=== PATIENT | male | born 1995 | race American Indian/Alaskan Native ===

== ENCOUNTER 2020-06-01 11:02 | Emergency (ER) | payer MEDICARE ==
--- NOTE | 2020-06-01 13:38 | Event Note ---
ED Screening Note Date of service: 06/01/20 Time: 13:37 ED Screening Note: This is a 24-year-old male with a history of depression, paraplegia who presents the ED with mother complaining of no eating for the past 4 days and nonverbal. Patient is not verbal at all. When asked questions he is not speaking. Mom states he can talk. Mom states that 911 and ambulance were sent to the home yesterday but patient refused to talk and no treatment was given. This initial assessment/diagnostic orders/clinical plan/treatment(s) is/are subject to change based on patients health status, clinical progression and re- assessment by fellow clinical providers in the ED. Further treatment and workup at subsequent clinical providers discretion. Patient/guardian urged not to elope from the ED as their condition may be serious if not clinically assessed and managed. Initial orders include: Labs are ordered. Urinalysis ordered, cxr Case management consult placed for home placement IV fluids,
--- NOTE | 2020-06-01 14:20 | XRay Report ---
CHEST 1 VIEW INDICATION / CLINICAL INFORMATION: pain. COMPARISON: None available. FINDINGS: SUPPORT DEVICES: None. HEART / MEDIASTINUM: No significant abnormality. LUNGS / PLEURA: No significant pulmonary or pleural abnormality.. No pneumothorax. ADDITIONAL FINDINGS: No significant additional findings. IMPRESSION: 1. No acute findings. Signer Name: Santy Pitts MD Signed: 06/01/2020 2:16 PM Workstation Name: [id number]
[2020-06-01] MEDS ORDERED: SODIUM CHLORIDE 0.9% 1000 ML 1,000 ML IV ONE ×2 (14:42→19:00)
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
[2020-06-01] MEDS ORDERED: ONDANSETRON 4 MG/2 ML INJ IV ONE (14:48)
[2020-06-01 15:15] LABS: Bilirubin,Urine NEG (Negative); Blood,Urine NEG (Negative); Color,Urine Amber (Yellow); Mucus,Urine 3+ /HPF
[2020-06-01 15:20] LABS: Amphetamine Screen,Urine Negative; Benzodiazepines Screen,Urine Negative; Cocaine Screen,Urine Negative; Methadone Screen,Urine Negative; Opiate Screen,Urine Negative
[2020-06-01 15:39] LABS: Cannabinoid Screen,Urine Positive
[2020-06-01 17:08] LABS: Basophils % (Auto) 0.4 % (0.0-1.8); Eosinophils % (Auto) 0.2 % (0.0-4.3); Hematocrit 47.7 % (35.5-45.6); Hemoglobin 15.5 gm/dl (11.8-15.2); Lymphocytes # (Auto) 1.4 K/mm3 (1.2-5.4); Lymphocytes % (Auto) 19.3 % (13.4-35.0); Mean Corpuscular HGB Conc 32 % (32-34); Mean Corpuscular Volume 88 fl (84-94); Monocytes # (Auto) 0.5 K/mm3 (0.0-0.8); Monocytes % (Auto) 7.1 % (0.0-7.3); Platelet Count 221 K/mm3 (140-440); Red Blood Count 5.41 M/mm3 (3.65-5.03); Red Cell Distribution Width 12.5 % (13.2-15.2)
[2020-06-01 17:27] LABS: Alanine Aminotransferase 16 units/L (7-56); Albumin 4.7 g/dL (3.9-5); Blood Urea Nitrogen 8 mg/dL (9-20); Hemolysis Index 7
[2020-06-01 17:36] LABS: BUN/Creatinine Ratio 11
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
[2020-06-02] MEDS: ARIPiprazole 5 MG TAB PO SCH (12:39)
[2020-06-02] MEDS ORDERED: SODIUM CHLORIDE 0.9% 500 ML 500 ML IV ONE (14:41)
--- NOTE | 2020-06-02 15:47 | XRay Report ---
CHEST 1 VIEW 06/02/2020 2:41 PM INDICATION / CLINICAL INFORMATION: poss sepsis. History of TBI. Not eating or drinking. COMPARISON: 06/01/20 FINDINGS: SUPPORT DEVICES: None. HEART / MEDIASTINUM: No significant abnormality. LUNGS / PLEURA: No significant pulmonary or pleural abnormality. No pneumothorax. ADDITIONAL FINDINGS: No significant additional findings. IMPRESSION: 1. No acute findings. No change. Signer Name: Kennedy Betancourt MD Signed: 06/02/2020 3:43 PM Workstation Name: [id number]
[2020-06-02 15:54] LABS: Blood Urea Nitrogen 4 mg/dL (9-20); Calcium 9.7 mg/dL (8.4-10.2); Hemolysis Index 12
[2020-06-02 15:58] LABS: BUN/Creatinine Ratio 7
[2020-06-02 16:00] LABS: Albumin 4.4 g/dL (3.9-5); Bilirubin,Direct 0.5 mg/dL (0-0.2)
[2020-06-02 16:09] LABS: Basophils % (Auto) 0.4 % (0.0-1.8); Eosinophils % (Auto) 0.7 % (0.0-4.3); Hematocrit 42.6 % (35.5-45.6); Hemoglobin 13.6 gm/dl (11.8-15.2); Lymphocytes # (Auto) 1.5 K/mm3 (1.2-5.4); Lymphocytes % (Auto) 31.4 % (13.4-35.0); Mean Corpuscular HGB Conc 32 % (32-34); Mean Corpuscular Volume 89 fl (84-94); Monocytes # (Auto) 0.5 K/mm3 (0.0-0.8); Monocytes % (Auto) 10.3 % (0.0-7.3); Platelet Count 190 K/mm3 (140-440); Red Blood Count 4.77 M/mm3 (3.65-5.03); Red Cell Distribution Width 12.7 % (13.2-15.2)
[2020-06-03] MEDS ORDERED: SODIUM CHLORIDE 0.9% 500 ML 500 ML IV ONE (09:11)
[2020-06-03] MEDS: ARIPiprazole 5 MG TAB PO SCH (09:37)
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
[2020-06-03 15:54] VITALS: BP 110/70
== END 2020-06-03 17:47 | disposition home or self-care (01) ==
LOC: ED 11:02 → EEVIPCON 11:02 → ED 06-03 17:47
DX: E86.0 Dehydration (principal); F32.9 Major depressive disorder, single episode, unspecified; G82.20 Paraplegia, unspecified; R41.82 Altered mental status, unspecified; Z98.890 Other specified postprocedural states; Z79.899 Other long term (current) drug therapy
CPT/HCPCS: 36415; 71045; 80048; 80053; 80076; 80307; 81001; 82140; 82550; 82962; 84484; 85025; 87040; 93005; 96361; 96374; 99285; J2405; J7030; J7040; 80320; G0480

== ENCOUNTER 2020-06-08 09:09 | Inpatient (IN) | payer MEDICARE ==
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
[2020-06-08] MEDS ORDERED: DEXTROSE 50% IN WATER (25GM) 50 ML SYRINGE IV ONE (10:25)
[2020-06-08] MEDS ORDERED: DEXTROSE 50% IN WATER (25GM) 50 ML VIAL IV PRN (10:27)
[2020-06-08 11:36] LABS: Hematocrit 44.8 % (35.5-45.6); Hemoglobin 14.6 gm/dl (11.8-15.2)
--- NOTE | 2020-06-08 11:44 | XRay Report ---
CHEST 1 VIEW INDICATION: hypoglycemia. COMPARISON: 06/02/2020 FINDINGS: Support devices: None. Heart: Within normal limits. Lungs/Pleura: No acute air space or interstitial disease. Additional findings: None. IMPRESSION: No acute abnormality. Signer Name: Eduar Cardenas MD Signed: 06/08/2020 11:40 AM Workstation Name: [id number]
[2020-06-08 11:59] LABS: Alanine Aminotransferase 10 units/L (7-56); Albumin 4.7 g/dL (3.9-5); BUN/Creatinine Ratio 6; Blood Urea Nitrogen 5 mg/dL (9-20); Calcium 10.3 mg/dL (8.4-10.2); Hemolysis Index 6
[2020-06-08] MEDS ORDERED: D5W/0.45% NACL 1,000 ML IV SCH (13:00)
--- NOTE | 2020-06-08 17:53 | History and Physical Report ---
History of Present Illness Date of examination: 06/08/20 Date of admission: 06/08/20 12:32 Chief complaint: Poor appetite History of present illness: 24-year-old male with a medical history of traumatic brain injury now with bilateral leg weakness admitted with a chief complaint of poor appetite. As per patient's mother, patient has been having poor appetite for quite some time now. He refuses to eat anything. Previously, patient was functional and was able to take care of himself but lately this is not the case. He was recently seen in the ER and was discharged from the ER At this time, patients labs showed metabolic acidosis and patient was admitted for further evaluation. Patient also has hypoglycemia. Past History Past Medical History: other (TBI) Medications and Allergies Allergies Allergy/AdvReac Type Severity Reaction Status Date / Time No Known Allergies Allergy Unverified 05/03/15 18:09 Home Medications Medication Instructions Recorded Confirmed Last Taken Type Escitalopram [Lexapro] 10 mg PO DAILY 05/03/15 05/04/15 05/04/15 History Zolpidem Tartrate [Ambien] 10 mg PO QHS 05/03/15 05/04/15 05/04/15 History oxyCODONE /ACETAMINOPHEN [Percocet 1 tab PO Q8HR PRN 05/03/15 05/04/15 05/04/15 History 5/325 mg] traZODone [Desyrel] 150 mg PO QHS 05/03/15 05/04/15 05/04/15 History Baclofen 20 mg PO Q6HR #1 mo 05/09/15 05/04/15 05/04/15 Rx Active Meds: Active Medications Dextrose (D50w (25gm) Vial) 50 gm IV Q30MIN PRN; Protocol PRN Reason: Hypoglycemia Dextrose/Lactated Ringer's (D5lr) 1,000 mls @ 100 mls/hr IV DIRECT YASMIN Review of Systems ROS unobtainable: due to mental status (Patient is nonverbal) Exam - Constitutional Vitals: Temp Pulse Resp BP Pulse Ox 97.8 F 100 H 20 114/72 98 06/08/20 11:46 06/08/20 11:46 06/08/20 11:46 06/08/20 11:46 06/08/20 11:46 General appearance: Present: no acute distress, well-nourished - EENT Eyes: Present: PERRL ENT: hearing intact, clear oral mucosa - Neck Neck: Present: supple, normal ROM - Respiratory Respiratory effort: normal Respiratory: bilateral: CTA - Cardiovascular Heart Sounds: Present: S1 & S2. Absent: rub, click - Extremities Extremities: No edema, abnormal (Has contractures of the upper extremity) Peripheral Pulses: within normal limits - Abdominal General gastrointestinal: Present: soft, non-tender, non-distended, normal bowel sounds Male genitourinary: Present: normal - Integumentary Integumentary: Present: clear, warm, dry - Musculoskeletal Musculoskeletal: gait normal, strength equal bilaterally - Psychiatric Psychiatric: appropriate mood/affect, intact judgment & insight - Neurologic Neurologic: CNII-XII intact, moves all extremities Results - Labs CBC & Chem 7: 06/08/20 11:03 06/08/20 11:03 Labs: Laboratory Last Values Hgb 14.6 gm/dl (11.8-15.2) 06/08/20 11:03 Hct 44.8 % (35.5-45.6) 06/08/20 11:03 Plt Count 238 K/mm3 (140-440) 06/08/20 11:03 Sodium 145 mmol/L (137-145) 06/08/20 11:03 Potassium 3.7 mmol/L (3.6-5.0) 06/08/20 11:03 Chloride 102.1 mmol/L (98-107) 06/08/20 11:03 Carbon Dioxide 17 mmol/L (22-30) L 06/08/20 11:03 Anion Gap 30 mmol/L 06/08/20 11:03 BUN 5 mg/dL (9-20) L 06/08/20 11:03 Creatinine 0.8 mg/dL (0.8-1.3) 06/08/20 11:03 Estimated GFR > 60 ml/min 06/08/20 11:03 BUN/Creatinine Ratio 6 % 06/08/20 11:03 Glucose 78 mg/dL (75-100) 06/08/20 11:03 POC Glucose 93 (70-105) 06/08/20 17:12 Calcium 10.3 mg/dL (8.4-10.2) H 06/08/20 11:03 Magnesium 1.80 mg/dL (1.7-2.3) 06/08/20 11:03 Total Bilirubin 1.90 mg/dL (0.1-1.2) H 06/08/20 11:03 AST 13 units/L (5-40) 06/08/20 11:03 ALT 10 units/L (7-56) 06/08/20 11:03 Alkaline Phosphatase 58 units/L (35-129) 06/08/20 11:03 Total Creatine Kinase 81 units/L (55-170) 06/08/20 11:03 Total Protein 8.6 g/dL (6.3-8.2) H 06/08/20 11:03 Albumin 4.7 g/dL (3.9-5) 06/08/20 11:03 Albumin/Globulin Ratio 1.2 % 06/08/20 11:03 Salicylates < 0.3 mg/dL (2.8-20.0) L 06/08/20 11:03 Acetaminophen 5.0 ug/mL (10.0-30.0) L 06/08/20 11:03 Plasma/Serum Alcohol < 0.01 % (0-0.07) 06/08/20 11:03 Assessment and Plan Assessment and plan: 24-year-old male with a medical history of traumatic brain injury admitted with a chief complaint of poor appetite. In the ER, patient noted to have hypoglycemia, metabolic acidosis and patient was admitted to the hospital. - Patient Problems (1) Starvation ketoacidosis Current Visit: Yes Status: Acute Plan to address problem: Patient has very poor appetite and has not been able to eat and this is resulting in metabolic acidosis Patient's mother is open to patient getting a PEG tube should no etiology found for current issues Check TSH, vitamin B12, folic acid, vitamin D. Check chest x-ray and urinalysis-results negative (2) Hypoglycemia Current Visit: Yes Status: Acute Plan to address problem: Start on D5 Ringer's lactate Accu-Cheks every 6 hours for now Megestrol (3) Depression Current Visit: Yes Status: Acute Qualifiers: Depression Type: other depression Qualified Code(s): F32.89 - Other specified depressive episodes Plan to address problem: Psychiatry evaluation for depression (4) Paraplegia Current Visit: Yes Status: Acute Plan to address problem: Continue daily monitoring Baclofen for contractures/spasms (5) DVT prophylaxis Current Visit: No Status: Acute Plan to address problem: Heparin
[2020-06-08] MEDS ORDERED: ONDANSETRON 4 MG/2 ML INJ IV PRN (18:33)
[2020-06-08] MEDS ORDERED: D5W/LACTATED RINGERS 1,000 ML IV SCH (19:00)
[2020-06-08] MEDS: BACLOFEN 10 MG TAB PO SCH (20:31)
[2020-06-09 06:17] LABS: Amphetamine Screen,Urine Negative; Benzodiazepines Screen,Urine Negative; Cocaine Screen,Urine Negative; Methadone Screen,Urine Negative; Opiate Screen,Urine Negative
[2020-06-09 06:56] LABS: Cannabinoid Screen,Urine Negative
--- NOTE | 2020-06-09 10:35 | Consultation ---
History of Present Illness - Reason for Consult Consult date: 06/09/20 Reason for consult: MHE Requesting physician: KIRBY DESAI - Chief Complaint Chief complaint: Poor appetite - History of Present Psychiatric Illness Psych HPI Patient is a 24 year old Male with Medical hx of TBi previously signed off psych services returned to facility for medical and psych evaluation. Patient seen in room, alert, nor verbal;, raised his right hand to the mouth, asked if he was hungry or thirsty patient nodded yes. Patient not able to respond to questions. MEDICATIONS: Assessment and Plan - Psychiatric problem (1) Hx of traumatic brain injury Current Visit: Yes Status: Acute No acute psychiatric benefit seen for inpt admission. Medical and Neuro management maybe warranted if they deem necessary, if not, penitentiary placement recommended at this time, due to level of care. Mom reports patient had been in penitentiary prior with good recovery. Risks, benefits and alternatives of medications discussed with the patient, questions answered and consent obtained from patient. PSYCHOTHERAPY: Supportive psychotherapy provided MEDICAL: Per primary team DELIRIUM PRECAUTIONS: Please re-orient patient frequently, keep lights on during the day, and minimize benzodiazepines and opiates as these medications could worsen patient's confusion. NEWSPAPER PUBLISHER: per medical team DISPOSITION: Per primary team; no indication for acute inpatient psychiatric hospitalization at this time LEGAL STATUS: Voluntary FOLLOW-UP: Will sign off Thank you for the consult. Please contact with any questions and/or concerns. Medications and Allergies Allergies Allergy/AdvReac Type Severity Reaction Status Date / Time No Known Allergies Allergy Unverified 05/03/15 18:09 Home Medications Medication Instructions Recorded Confirmed Last Taken Type Escitalopram [Lexapro] 10 mg PO DAILY 05/03/15 05/04/15 05/04/15 History Zolpidem Tartrate [Ambien] 10 mg PO QHS 05/03/15 05/04/15 05/04/15 History oxyCODONE /ACETAMINOPHEN [Percocet 1 tab PO Q8HR PRN 05/03/15 05/04/15 05/04/15 History 5/325 mg] traZODone [Desyrel] 150 mg PO QHS 05/03/15 05/04/15 05/04/15 History Baclofen 20 mg PO Q6HR #1 mo 05/09/15 05/04/15 05/04/15 Rx Active Meds: Active Medications Baclofen (Lioresal) 10 mg PO TID YASMIN Last Admin: 06/08/20 20:31 Dose: Not Given Documented by: Dextrose (D50w (25gm) Vial) 50 gm IV Q30MIN PRN; Protocol PRN Reason: Hypoglycemia Escitalopram Oxalate (Lexapro) 15 mg PO QDAY YASMIN Folic Acid (Folvite) 1 mg PO QDAY YASMIN Dextrose/Lactated Ringer's (D5lr) 1,000 mls @ 100 mls/hr IV DIRECT YASMIN Ondansetron HCl (Zofran) 4 mg IV Q8H PRN PRN Reason: Nausea And Vomiting Mental Status Exam - Vital signs Last Vital Signs Temp 97.9 F 06/09/20 04:17 Pulse 130 H 06/09/20 04:17 Resp 16 06/09/20 04:17 BP 120/83 06/09/20 04:17 Pulse Ox 100 06/09/20 04:17 Results Result Diagrams: 06/08/20 11:03 06/08/20 11:03 Abnormal lab results 06/08/20 06/08/20 06/08/20 Range/Units 11:03 11:03 11:03 Carbon Dioxide 17 L (22-30) mmol/L BUN 5 L (9-20) mg/dL POC Glucose (70-105) Calcium 10.3 H (8.4-10.2) mg/dL Total Bilirubin 1.90 H (0.1-1.2) mg/dL Total Protein 8.6 H (6.3-8.2) g/dL Vitamin B12 (211-911) pg/mL Folate (7.3-26.0) ng/mL Salicylates < 0.3 L (2.8-20.0) mg/dL Acetaminophen 5.0 L (10.0-30.0) ug/mL 06/08/20 06/08/20 06/08/20 Range/Units 11:03 11:03 21:27 Carbon Dioxide (22-30) mmol/L BUN (9-20) mg/dL POC Glucose 121 H (70-105) Calcium (8.4-10.2) mg/dL Total Bilirubin (0.1-1.2) mg/dL Total Protein (6.3-8.2) g/dL Vitamin B12 > 2000 H (211-911) pg/mL Folate 2.91 L (7.3-26.0) ng/mL Salicylates (2.8-20.0) mg/dL Acetaminophen (10.0-30.0) ug/mL All other labs normal. Assessment and Plan - Psychiatric problem (1) Hx of traumatic brain injury Current Visit: Yes Status: Acute
--- NOTE | 2020-06-09 10:44 | Progress Note ---
Assessment and Plan Assessment and plan: 24-year-old male with a medical history of traumatic brain injury admitted with a chief complaint of poor appetite. In the ER, patient noted to have hypoglycemia, metabolic acidosis and patient was admitted to the hospital. 06/08. I discussed case with patient's mother. Patient has not been eating any thing at all for some time now. Patient will need to improve appetite to prevent electrolyte imbalances. Patient's mother is okay to get a PEG tube should this be necessary. Labs have been ordered 06/09. Patient refused labs this morning. I explained to him why he needs to have labs done. Resume patient's diet. Started patient on megestrol for now. - Patient Problems (1) Starvation ketoacidosis Current Visit: Yes Status: Acute Plan to address problem: Patient has very poor appetite and has not been able to eat and this is resulting in metabolic acidosis Patient's mother is open to patient getting a PEG tube should no etiology found for current issues Check chest x-ray and urinalysis-results negative (2) Hypoglycemia Current Visit: Yes Status: Acute Plan to address problem: Continue D5 Ringer's lactate when patient agrees to have IV access. Resume diet Accu-Cheks every 6 hours for now Megestrol (3) Depression Current Visit: Yes Status: Acute Qualifiers: Depression Type: other depression Qualified Code(s): F32.89 - Other specified depressive episodes Plan to address problem: Psychiatry evaluation for depression (4) Paraplegia Current Visit: Yes Status: Acute Plan to address problem: Continue daily monitoring Baclofen for contractures/spasms (5) DVT prophylaxis Current Visit: No Status: Acute Plan to address problem: Heparin History Interval history: See assessment and plan Hospitalist Physical - Constitutional Vitals: Temp Pulse Resp BP Pulse Ox 97.9 F 130 H 16 120/83 100 06/09/20 04:17 06/09/20 04:17 06/09/20 04:17 06/09/20 04:17 06/09/20 04:17 General appearance: Present: no acute distress, well-nourished - EENT Eyes: Present: PERRL - Neck Neck: Present: supple - Respiratory Respiratory: bilateral: CTA - Cardiovascular Heart rate: 120 Rhythm: regular Heart Sounds: Present: S1 & S2 - Extremities Extremities: No edema - Abdominal General gastrointestinal: soft, non-tender, non-distended - Psychiatric Psychiatric: depressed - Neurologic Neurologic: CNII-XII intact Results - Labs CBC & Chem 7: 06/08/20 11:03 06/08/20 11:03 Labs: Laboratory Last Values Hgb 14.6 gm/dl (11.8-15.2) 06/08/20 11:03 Hct 44.8 % (35.5-45.6) 06/08/20 11:03 Plt Count 238 K/mm3 (140-440) 06/08/20 11:03 Sodium 145 mmol/L (137-145) 06/08/20 11:03 Potassium 3.7 mmol/L (3.6-5.0) 06/08/20 11:03 Chloride 102.1 mmol/L (98-107) 06/08/20 11:03 Carbon Dioxide 17 mmol/L (22-30) L 06/08/20 11:03 Anion Gap 30 mmol/L 06/08/20 11:03 BUN 5 mg/dL (9-20) L 06/08/20 11:03 Creatinine 0.8 mg/dL (0.8-1.3) 06/08/20 11:03 Estimated GFR > 60 ml/min 06/08/20 11:03 BUN/Creatinine Ratio 6 % 06/08/20 11:03 Glucose 78 mg/dL (75-100) 06/08/20 11:03 POC Glucose 121 (70-105) H 06/08/20 21:27 Calcium 10.3 mg/dL (8.4-10.2) H 06/08/20 11:03 Magnesium 1.80 mg/dL (1.7-2.3) 06/08/20 11:03 Total Bilirubin 1.90 mg/dL (0.1-1.2) H 06/08/20 11:03 AST 13 units/L (5-40) 06/08/20 11:03 ALT 10 units/L (7-56) 06/08/20 11:03 Alkaline Phosphatase 58 units/L (35-129) 06/08/20 11:03 Total Creatine Kinase 81 units/L (55-170) 06/08/20 11:03 Total Protein 8.6 g/dL (6.3-8.2) H 06/08/20 11:03 Albumin 4.7 g/dL (3.9-5) 06/08/20 11:03 Albumin/Globulin Ratio 1.2 % 06/08/20 11:03 Vitamin B12 > 2000 pg/mL (211-911) H 06/08/20 11:03 Folate 2.91 ng/mL (7.3-26.0) L 06/08/20 11:03 TSH 1.220 mlU/mL (0.270-4.200) 06/08/20 11:03 Salicylates < 0.3 mg/dL (2.8-20.0) L 06/08/20 11:03 Urine Opiates Screen Negative 06/08/20 05:12 Urine Methadone Screen Negative 06/08/20 05:12 Acetaminophen 5.0 ug/mL (10.0-30.0) L 06/08/20 11:03 Ur Barbiturates Screen Negative 06/08/20 05:12 Ur Phencyclidine Scrn Negative 06/08/20 05:12 Ur Amphetamines Screen Negative 06/08/20 05:12 U Benzodiazepines Scrn Negative 06/08/20 05:12 Urine Cocaine Screen Negative 06/08/20 05:12 U Marijuana (THC) Screen Negative 06/08/20 05:12 Drugs of Abuse Note Disclamer 06/08/20 05:12 Plasma/Serum Alcohol < 0.01 % (0-0.07) 06/08/20 11:03 Arias/IV: Voiding Method Urinal Active Medications - Current Medications Current Medications: Generic Name Dose Route Start Last Admin Trade Name Freq PRN Reason Stop Dose Admin Baclofen 10 mg 06/08/20 20:00 06/08/20 20:31 Lioresal PO Not Given TID YASMIN Dextrose 50 gm 06/08/20 10:27 D50w (25gm) Vial IV Q30MIN PRN Hypoglycemia Protocol Escitalopram Oxalate 15 mg 06/09/20 10:00 Lexapro PO QDAY YASMIN Folic Acid 1 mg 06/09/20 10:00 Folvite PO QDAY YASMIN Dextrose/Lactated Ringer's 1,000 mls @ 100 mls/hr 06/08/20 19:00 D5lr IV DIRECT YASMIN Ondansetron HCl 4 mg 06/08/20 18:33 Zofran IV Q8H PRN Nausea And Vomiting
[2020-06-09] MEDS: BACLOFEN 10 MG TAB PO SCH ×3 (11:04→20:15)
[2020-06-09] MEDS: FOLIC ACID 1 MG TAB PO SCH (13:15)
[2020-06-09] MEDS: ESCITALOPRAM 10 MG TAB PO SCH (13:15)
[2020-06-10] MEDS: BACLOFEN 10 MG TAB PO SCH ×2 (11:48→22:05)
[2020-06-10] MEDS: ESCITALOPRAM 10 MG TAB PO SCH (11:49)
[2020-06-10] MEDS: FOLIC ACID 1 MG TAB PO SCH (11:49)
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
--- NOTE | 2020-06-10 14:50 | Progress Note ---
Assessment and Plan Assessment and plan: 24-year-old male with a medical history of traumatic brain injury admitted with a chief complaint of poor appetite. In the ER, patient noted to have hypoglycemia, metabolic acidosis and patient was admitted to the hospital. 06/08. I discussed case with patient's mother. Patient has not been eating any thing at all for some time now. Patient will need to improve appetite to prevent electrolyte imbalances. Patient's mother is okay to get a PEG tube should this be necessary. Labs have been ordered 06/09. Patient refused labs this morning. I explained to him why he needs to have labs done. Resume patient's diet. Started patient on megestrol for now. 06/10. He is still nonverbal. He does not put effort in trying to speak. He has been cleared by psych. CT head showed no acute infarct. I tried to make him speak and he was smiling all through. He does not want to eat as well. COnsulted GI today to know if he can get a PEG tube for feeding. I discussed with patient, he does not want PEG tube. Discussed with patients mother. - Patient Problems (1) Starvation ketoacidosis Current Visit: Yes Status: Acute Plan to address problem: Patient has very poor appetite and has not been able to eat and this is resulting in metabolic acidosis Has refused further finger sticks Patient's mother is open to patient getting a PEG tube should no etiology found for current issues. GI consulted for PEG placement. Check chest x-ray and urinalysis-results negative (2) Hypoglycemia Current Visit: Yes Status: Acute Plan to address problem: Continue D5 Ringer's lactate when patient agrees to have IV access Accu-Cheks every 6 hours for now if he agrees Megestrol if he agrees (3) Depression Current Visit: Yes Status: Acute Qualifiers: Depression Type: other depression Qualified Code(s): F32.89 - Other specified depressive episodes Plan to address problem: Psychiatry evaluation for depression - As per psych he is not a candidate for inpatient. I suspect his inability to eat is psychological. I will reconsult psych. (4) Paraplegia Current Visit: Yes Status: Acute Plan to address problem: Continue daily monitoring Baclofen for contractures/spasms (5) DVT prophylaxis Current Visit: No Status: Acute Plan to address problem: Heparin History Interval history: See assessment and plan Hospitalist Physical - Constitutional Vitals: Temp Pulse Resp BP Pulse Ox 98.3 F 76 18 110/73 98 06/10/20 11:27 06/10/20 11:27 06/10/20 11:27 06/10/20 11:27 06/10/20 11:27 General appearance: Present: no acute distress, well-nourished - EENT Eyes: Present: PERRL - Respiratory Respiratory: bilateral: CTA - Cardiovascular Heart Sounds: Present: S1 & S2 - Neurologic Neurologic: CNII-XII intact (Nonverbal) Results - Labs CBC & Chem 7: 06/08/20 11:03 06/08/20 11:03 Labs: Laboratory Last Values Hgb 14.6 gm/dl (11.8-15.2) 06/08/20 11:03 Hct 44.8 % (35.5-45.6) 06/08/20 11:03 Plt Count 238 K/mm3 (140-440) 06/08/20 11:03 Sodium 145 mmol/L (137-145) 06/08/20 11:03 Potassium 3.7 mmol/L (3.6-5.0) 06/08/20 11:03 Chloride 102.1 mmol/L (98-107) 06/08/20 11:03 Carbon Dioxide 17 mmol/L (22-30) L 06/08/20 11:03 Anion Gap 30 mmol/L 06/08/20 11:03 BUN 5 mg/dL (9-20) L 06/08/20 11:03 Creatinine 0.8 mg/dL (0.8-1.3) 06/08/20 11:03 Estimated GFR > 60 ml/min 06/08/20 11:03 BUN/Creatinine Ratio 6 % 06/08/20 11:03 Glucose 78 mg/dL (75-100) 06/08/20 11:03 POC Glucose 98 (70-105) 06/09/20 20:40 Calcium 10.3 mg/dL (8.4-10.2) H 06/08/20 11:03 Magnesium 1.80 mg/dL (1.7-2.3) 06/08/20 11:03 Total Bilirubin 1.90 mg/dL (0.1-1.2) H 06/08/20 11:03 AST 13 units/L (5-40) 06/08/20 11:03 ALT 10 units/L (7-56) 06/08/20 11:03 Alkaline Phosphatase 58 units/L (35-129) 06/08/20 11:03 Total Creatine Kinase 81 units/L (55-170) 06/08/20 11:03 Total Protein 8.6 g/dL (6.3-8.2) H 06/08/20 11:03 Albumin 4.7 g/dL (3.9-5) 06/08/20 11:03 Albumin/Globulin Ratio 1.2 % 06/08/20 11:03 Vitamin B12 > 2000 pg/mL (211-911) H 06/08/20 11:03 Folate 2.91 ng/mL (7.3-26.0) L 06/08/20 11:03 TSH 1.220 mlU/mL (0.270-4.200) 06/08/20 11:03 Salicylates < 0.3 mg/dL (2.8-20.0) L 06/08/20 11:03 Urine Opiates Screen Negative 06/08/20 05:12 Urine Methadone Screen Negative 06/08/20 05:12 Acetaminophen 5.0 ug/mL (10.0-30.0) L 06/08/20 11:03 Ur Barbiturates Screen Negative 06/08/20 05:12 Ur Phencyclidine Scrn Negative 06/08/20 05:12 Ur Amphetamines Screen Negative 06/08/20 05:12 U Benzodiazepines Scrn Negative 06/08/20 05:12 Urine Cocaine Screen Negative 06/08/20 05:12 U Marijuana (THC) Screen Negative 06/08/20 05:12 Drugs of Abuse Note Disclamer 06/08/20 05:12 Plasma/Serum Alcohol < 0.01 % (0-0.07) 06/08/20 11:03 Arias/IV: Voiding Method Condom Catheter Active Medications - Current Medications Current Medications: Generic Name Dose Route Start Last Admin Trade Name Freq PRN Reason Stop Dose Admin Baclofen 10 mg 06/08/20 20:00 06/10/20 11:48 Lioresal PO Not Given TID YASMIN Dextrose 50 gm 06/08/20 10:27 D50w (25gm) Vial IV Q30MIN PRN Hypoglycemia Protocol Escitalopram Oxalate 15 mg 06/09/20 10:00 06/10/20 11:49 Lexapro PO Not Given QDAY [facility] Folic Acid 1 mg 06/09/20 10:00 06/10/20 11:49 Folvite PO Not Given QDAY [facility] Dextrose/Lactated Ringer's 1,000 mls @ 100 mls/hr 06/08/20 19:00 D5lr IV DIRECT YASMIN Ondansetron HCl 4 mg 06/08/20 18:33 Zofran IV Q8H PRN Nausea And Vomiting
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
[2020-06-11] MEDS: BACLOFEN 10 MG TAB PO SCH ×5 (09:28→21:02)
[2020-06-11] MEDS: ESCITALOPRAM 10 MG TAB PO SCH ×2 (09:28→09:33)
[2020-06-11] MEDS: FOLIC ACID 1 MG TAB PO SCH ×2 (09:29→09:32)
--- NOTE | 2020-06-11 11:20 | Progress Note ---
Assessment and Plan Assessment and plan: 24-year-old male with a medical history of traumatic brain injury admitted with a chief complaint of poor appetite. In the ER, patient noted to have hypoglycemia, metabolic acidosis and patient was admitted to the hospital. 06/08. I discussed case with patient's mother. Patient has not been eating any thing at all for some time now. Patient will need to improve appetite to prevent electrolyte imbalances. Patient's mother is okay to get a PEG tube should this be necessary. Labs have been ordered 06/09. Patient refused labs this morning. I explained to him why he needs to have labs done. Resume patient's diet. Started patient on megestrol for now. 06/10. He is still nonverbal. He does not put effort in trying to speak. He has been cleared by psych. CT head showed no acute infarct. I tried to make him speak and he was smiling all through. He does not want to eat as well. Consulted GI today to know if he can get a PEG tube for feeding. I discussed with patient, he does not want PEG tube. Discussed with patients mother. 06/11. Psychiatry consulted yesterday as patient's was not willing to talk. I suspect patient's unwillingness is from underlying psych disorder. GI has seen patients and patient also needs psych evaluation. Psych to see patient today. Patient was able to mumble a few words this morning. CT head performed yesterday was negative for any acute abnormality - Patient Problems (1) Starvation ketoacidosis Current Visit: Yes Status: Acute Plan to address problem: Patient has very poor appetite and has not been able to eat and this is resulting in metabolic acidosis Has refused further finger sticks Patient's mother is open to patient getting a PEG tube should no etiology found for current issues. GI consulted for PEG placement. 06/10. As per GI, patient will need psych clearance prior to PEG tube placement 06/11. Psychiatry is been consulted (2) Hypoglycemia Current Visit: Yes Status: Acute Plan to address problem: D5 Ringer's lactate when patient agrees to have IV access Accu-Cheks every 6 hours for now if he agrees Megestrol if he agrees (3) Depression Current Visit: Yes Status: Acute Qualifiers: Depression Type: other depression Qualified Code(s): F32.89 - Other specified depressive episodes Plan to address problem: Psychiatry evaluation for depression - As per psych he is not a candidate for inpatient. 06/10. Psychiatry reconsulted today. 06/11. Psychiatry to see patient today (4) Paraplegia Current Visit: Yes Status: Acute Plan to address problem: Baclofen for contractures/spasms (5) DVT prophylaxis Current Visit: No Status: Acute Plan to address problem: Heparin History Interval history: See assessment and plan Hospitalist Physical - Constitutional Vitals: Temp Pulse Resp BP Pulse Ox 97.6 F 108 H 18 126/78 98 06/11/20 04:24 06/11/20 04:24 06/11/20 04:24 06/11/20 04:24 06/11/20 04:24 General appearance: Present: no acute distress, well-nourished - Neck Neck: Present: supple - Respiratory Respiratory effort: normal - Cardiovascular Rhythm: regular Heart Sounds: Present: S1 & S2 - Abdominal General gastrointestinal: soft, non-tender, non-distended, normal bowel sounds - Psychiatric Psychiatric: other (Not willing to speak) - Neurologic Neurologic: CNII-XII intact Results - Labs CBC & Chem 7: 06/08/20 11:03 06/08/20 11:03 Labs: Laboratory Last Values Hgb 14.6 gm/dl (11.8-15.2) 06/08/20 11:03 Hct 44.8 % (35.5-45.6) 06/08/20 11:03 Plt Count 238 K/mm3 (140-440) 06/08/20 11:03 Sodium 145 mmol/L (137-145) 06/08/20 11:03 Potassium 3.7 mmol/L (3.6-5.0) 06/08/20 11:03 Chloride 102.1 mmol/L (98-107) 06/08/20 11:03 Carbon Dioxide 17 mmol/L (22-30) L 06/08/20 11:03 Anion Gap 30 mmol/L 06/08/20 11:03 BUN 5 mg/dL (9-20) L 06/08/20 11:03 Creatinine 0.8 mg/dL (0.8-1.3) 06/08/20 11:03 Estimated GFR > 60 ml/min 06/08/20 11:03 BUN/Creatinine Ratio 6 % 06/08/20 11:03 Glucose 78 mg/dL (75-100) 06/08/20 11:03 POC Glucose 84 (70-105) 06/11/20 07:42 Calcium 10.3 mg/dL (8.4-10.2) H 06/08/20 11:03 Magnesium 1.80 mg/dL (1.7-2.3) 06/08/20 11:03 Total Bilirubin 1.90 mg/dL (0.1-1.2) H 06/08/20 11:03 AST 13 units/L (5-40) 06/08/20 11:03 ALT 10 units/L (7-56) 06/08/20 11:03 Alkaline Phosphatase 58 units/L (35-129) 06/08/20 11:03 Total Creatine Kinase 81 units/L (55-170) 06/08/20 11:03 Total Protein 8.6 g/dL (6.3-8.2) H 06/08/20 11:03 Albumin 4.7 g/dL (3.9-5) 06/08/20 11:03 Albumin/Globulin Ratio 1.2 % 06/08/20 11:03 Vitamin B12 > 2000 pg/mL (211-911) H 06/08/20 11:03 Folate 2.91 ng/mL (7.3-26.0) L 06/08/20 11:03 TSH 1.220 mlU/mL (0.270-4.200) 06/08/20 11:03 Salicylates < 0.3 mg/dL (2.8-20.0) L 06/08/20 11:03 Urine Opiates Screen Negative 06/08/20 05:12 Urine Methadone Screen Negative 06/08/20 05:12 Acetaminophen 5.0 ug/mL (10.0-30.0) L 06/08/20 11:03 Ur Barbiturates Screen Negative 06/08/20 05:12 Ur Phencyclidine Scrn Negative 06/08/20 05:12 Ur Amphetamines Screen Negative 06/08/20 05:12 U Benzodiazepines Scrn Negative 06/08/20 05:12 Urine Cocaine Screen Negative 06/08/20 05:12 U Marijuana (THC) Screen Negative 06/08/20 05:12 Drugs of Abuse Note Disclamer 06/08/20 05:12 Plasma/Serum Alcohol < 0.01 % (0-0.07) 06/08/20 11:03 Arias/IV: Voiding Method Condom Catheter Active Medications - Current Medications Current Medications: Generic Name Dose Route Start Last Admin Trade Name Freq PRN Reason Stop Dose Admin Baclofen 10 mg 06/08/20 20:00 06/11/20 09:34 Lioresal PO Not Given TID YASMIN Dextrose 50 gm 06/08/20 10:27 D50w (25gm) Vial IV Q30MIN PRN Hypoglycemia Protocol Escitalopram Oxalate 15 mg 06/09/20 10:00 06/11/20 09:33 Lexapro PO Not Given QDAY YASMIN Folic Acid 1 mg 06/09/20 10:00 06/11/20 09:32 Folvite PO Not Given QDAY YASMIN Dextrose/Lactated Ringer's 1,000 mls @ 100 mls/hr 06/08/20 19:00 06/10/20 22:05 D5lr IV 100 mls/hr DIRECT YASMIN Administration Ondansetron HCl 4 mg 06/08/20 18:33 Zofran IV Q8H PRN Nausea And Vomiting
--- NOTE | 2020-06-11 11:45 | Consultation ---
History of Present Illness - Reason for Consult Consult date: 06/11/20 Reason for consult: nonverbal, poor appetite - History of Present Psychiatric Illness Thomas Lance is a 24y/o male patient who is known to me from a previous visit. The patient was initially sign off by psych but a new consult was placed. During my interview with the patient today, he is lying in bed awake. He acknowledges me when I walk into the room by smiling. The patient is able to communicate and verbalized understanding by shaking or nodding his head. When asking the patient if he remembered me, he started looking at my name tag and coat. He then shook his head "no." When asking the patient was he suicidal, he looked at me and shook his head "no." I asked the patient was he depressed and he also shook his head "no." When asking the patient why was he not speaking he shrugged his sh oulders up. I asked him, you don't know why you're not speaking. The patient shook his head "yes." I then asked the patient was he not speaking because he didn't want to he laughed and nodded his head "yes." I asked Thomas for his permission to call his mom. He looked at me and made a sound that I understood to be "why." So I asked him, are you asking "why do I need to call her." He nodded his head yes. I informed the patient that I just wanted to speak with her to get an idea of how he usually was. He then relaxed his face and shook his head "yes." I also asked the patient why was he not eating. He looked at his food and then looked back at me and shrugged his shoulders. I spoke with the patient's mother, Mrs. Lance. She says the patient normally doesn't communicate this much at home but prior to a few weeks ago he was speaking. I advised mom that I don't feel the patient would benefit from psychiatric services at this time, and that the patient may need placement. Mom says that she had been speaking with the hospital social worker and she feels that placement might be best if Ellen agrees with it. PAST PSYCHIATRIC HISTORY: Unable to assess PAST MEDICAL HISTORY: None reported Family Psychiatric History: None reported or documented SOCIAL HISTORY Marital Status: Living Arrangements: Alone Employment Status: Unemployed Access to guns/weapons: Denies Education: [employer] History of Abuse: Denies Legal History: Denies MSE Appearance: Wearing appropriate clothing. Behavior: Calm and cooperative Mood: Affect: Congruent with stated mood Thought Process: Goal directed Speech: Selectively mute Thought Content Suicidal: Denies Homicidal: Denies Hallucinations: Denies Delusions: none elicited Consciousness: alert. Cognition/Memory: Limited Insight/Judgment: Limited. Assessment - Psychiatric problem (1) Hx of traumatic brain injury Current Visit: Yes Status: Acute (2) Selective Mutism RECOMMENDATIONS Risks, benefits and alternatives of medications discussed with the patient, questions answered and consent obtained from patient. PSYCHOTHERAPY: Supportive psychotherapy provided MEDICAL: Per primary team DELIRIUM PRECAUTIONS: Please re-orient patient frequently, keep lights on during the day, and minimize benzodiazepines and opiates as these medications could worsen patient's confusion. WORKER'S COMPENSATION CLAIMS EXAMINER: per medical team DISPOSITION: I agree with previous recommendations of possible SNF placement, it is also my clinical opinion that this patient would not benefit from acute in patient psychiatric services at this time. LEGAL STATUS: Voluntary FOLLOW-UP: Will sign off Thank you for the consult. Please contact with any questions and/or concerns. Medications and Allergies Allergies Allergy/AdvReac Type Severity Reaction Status Date / Time No Known Allergies Allergy Unverified 05/03/15 18:09 Home Medications Medication Instructions Recorded Confirmed Last Taken Type Escitalopram [Lexapro] 10 mg PO DAILY 05/03/15 05/04/15 05/04/15 History Zolpidem Tartrate [Ambien] 10 mg PO QHS 05/03/15 05/04/15 05/04/15 History oxyCODONE /ACETAMINOPHEN [Percocet 1 tab PO Q8HR PRN 05/03/15 05/04/15 05/04/15 History 5/325 mg] traZODone [Desyrel] 150 mg PO QHS 05/03/15 05/04/15 05/04/15 History Baclofen 20 mg PO Q6HR #1 mo 05/09/15 05/04/15 05/04/15 Rx Active Meds: Active Medications Baclofen (Lioresal) 10 mg PO TID YASMIN Last Admin: 06/11/20 09:34 Dose: Not Given Documented by: Dextrose (D50w (25gm) Vial) 50 gm IV Q30MIN PRN; Protocol PRN Reason: Hypoglycemia Escitalopram Oxalate (Lexapro) 15 mg PO QDAY [facility] Last Admin: 06/11/20 09:33 Dose: Not Given Documented by: Folic Acid (Folvite) 1 mg PO QDAY [facility] Last Admin: 06/11/20 09:32 Dose: Not Given Documented by: Heparin Sodium (Porcine) (Heparin) 5,000 unit SUB-Q Q8HR [facility] Dextrose/Lactated Ringer's (D5lr) 1,000 mls @ 100 mls/hr IV DIRECT [facility] Last Admin: 06/10/20 22:05 Dose: 100 mls/hr Documented by: Ondansetron HCl (Zofran) 4 mg IV Q8H PRN PRN Reason: Nausea And Vomiting Mental Status Exam - Vital signs Last Vital Signs Temp 97.6 F 06/11/20 04:24 Pulse 108 H 06/11/20 04:24 Resp 18 06/11/20 04:24 BP 126/78 06/11/20 04:24 Pulse Ox 98 06/11/20 04:24 Results Result Diagrams: 06/08/20 11:03 06/08/20 11:03 All other labs normal.
[2020-06-11] MEDS: HEPARIN 5,000 UNIT/1 ML VIAL SUB-Q SCH ×2 (13:37→21:03)
[2020-06-12] MEDS: HEPARIN 5,000 UNIT/1 ML VIAL SUB-Q SCH (06:00)
[2020-06-12] MEDS: BACLOFEN 10 MG TAB PO SCH ×2 (09:43→09:50)
[2020-06-12] MEDS: ESCITALOPRAM 10 MG TAB PO SCH ×2 (09:43→09:51)
[2020-06-12] MEDS: FOLIC ACID 1 MG TAB PO SCH ×2 (09:44→09:50)
--- NOTE | 2020-06-12 11:49 | Progress Note ---
Assessment and Plan Assessment and plan: 24-year-old male with a medical history of traumatic brain injury admitted with a chief complaint of poor appetite. In the ER, patient noted to have hypoglycemia, metabolic acidosis and patient was admitted to the hospital. 06/08. I discussed case with patient's mother. Patient has not been eating any thing at all for some time now. Patient will need to improve appetite to prevent electrolyte imbalances. Patient's mother is okay to get a PEG tube should this be necessary. Labs have been ordered 06/09. Patient refused labs this morning. I explained to him why he needs to have labs done. Resume patient's diet. Started patient on megestrol for now. 06/10. He is still nonverbal. He does not put effort in trying to speak. He has been cleared by psych. CT head showed no acute infarct. I tried to make him speak and he was smiling all through. He does not want to eat as well. Consulted GI today to know if he can get a PEG tube for feeding. I discussed with patient, he does not want PEG tube. Discussed with patients mother. 06/11. Psychiatry consulted yesterday as patient's was not willing to talk. I suspect patient's unwillingness is from underlying psych disorder. GI has seen patients and patient also needs psych evaluation. Psych to see patient today. Patient was able to mumble a few words this morning. CT head performed yesterday was negative for any acute abnormality 06/12. He started eating yesterday. He ordered his lunch today. He is able to sepak. He is open to going to SNF. Discussed with patient and mother. He has been cleared by psych. - Patient Problems (1) Starvation ketoacidosis Current Visit: Yes Status: Acute Plan to address problem: Patient has very poor appetite and has not been able to eat and this is resulting in metabolic acidosis Has refused further finger sticks Patient's mother is open to patient getting a PEG tube should no etiology found for current issues. GI consulted for PEG placement. 06/10. As per GI, patient will need psych clearance prior to PEG tube placement 06/11. Psychiatry is been consulted 06/12. Appetite is better. (2) Hypoglycemia Current Visit: Yes Status: Acute Plan to address problem: Resolved (3) Depression Current Visit: Yes Status: Acute Qualifiers: Depression Type: other depression Qualified Code(s): F32.89 - Other specified depressive episodes Plan to address problem: Psychiatry evaluation for depression - As per psych he is not a candidate for i npatient. 06/10. Psychiatry reconsulted today. 06/11. Psychiatry to see patient today. 06/12. Psych already cleared. (4) Paraplegia Current Visit: Yes Status: Acute Plan to address problem: Baclofen for contractures/spasms (5) DVT prophylaxis Current Visit: No Status: Acute Plan to address problem: Heparin (6) Advance care planning Current Visit: Yes Status: Acute Plan to address problem: Patients mother is open to going to a SNF vs residential. History Interval history: See assessment and plan Hospitalist Physical - Constitutional Vitals: Temp Pulse Resp BP Pulse Ox 98.5 F 105 H 18 104/79 97 06/12/20 04:45 06/11/20 22:23 06/12/20 04:45 06/12/20 04:45 06/11/20 22:23 General appearance: Present: no acute distress, well-nourished - EENT Eyes: Present: PERRL - Respiratory Respiratory: bilateral: CTA - Cardiovascular Rhythm: regular - Extremities Extremities: No edema - Abdominal General gastrointestinal: soft, non-tender, non-distended, normal bowel sounds - Psychiatric Psychiatric: appropriate mood/affect - Neurologic Neurologic: CNII-XII intact Results - Labs CBC & Chem 7: 06/08/20 11:03 06/08/20 11:03 Labs: Laboratory Last Values Hgb 14.6 gm/dl (11.8-15.2) 06/08/20 11:03 Hct 44.8 % (35.5-45.6) 06/08/20 11:03 Plt Count 238 K/mm3 (140-440) 06/08/20 11:03 Sodium 145 mmol/L (137-145) 06/08/20 11:03 Potassium 3.7 mmol/L (3.6-5.0) 06/08/20 11:03 Chloride 102.1 mmol/L (98-107) 06/08/20 11:03 Carbon Dioxide 17 mmol/L (22-30) L 06/08/20 11:03 Anion Gap 30 mmol/L 06/08/20 11:03 BUN 5 mg/dL (9-20) L 06/08/20 11:03 Creatinine 0.8 mg/dL (0.8-1.3) 06/08/20 11:03 Estimated GFR > 60 ml/min 06/08/20 11:03 BUN/Creatinine Ratio 6 % 06/08/20 11:03 Glucose 78 mg/dL (75-100) 06/08/20 11:03 POC Glucose 70 (70-105) 06/12/20 08:19 Calcium 10.3 mg/dL (8.4-10.2) H 06/08/20 11:03 Magnesium 1.80 mg/dL (1.7-2.3) 06/08/20 11:03 Total Bilirubin 1.90 mg/dL (0.1-1.2) H 06/08/20 11:03 AST 13 units/L (5-40) 06/08/20 11:03 ALT 10 units/L (7-56) 06/08/20 11:03 Alkaline Phosphatase 58 units/L (35-129) 06/08/20 11:03 Total Creatine Kinase 81 units/L (55-170) 06/08/20 11:03 Total Protein 8.6 g/dL (6.3-8.2) H 06/08/20 11:03 Albumin 4.7 g/dL (3.9-5) 06/08/20 11:03 Albumin/Globulin Ratio 1.2 % 06/08/20 11:03 Vitamin B12 > 2000 pg/mL (211-911) H 06/08/20 11:03 Folate 2.91 ng/mL (7.3-26.0) L 06/08/20 11:03 TSH 1.220 mlU/mL (0.270-4.200) 06/08/20 11:03 Salicylates < 0.3 mg/dL (2.8-20.0) L 06/08/20 11:03 Urine Opiates Screen Negative 06/08/20 05:12 Urine Methadone Screen Negative 06/08/20 05:12 Acetaminophen 5.0 ug/mL (10.0-30.0) L 06/08/20 11:03 Ur Barbiturates Screen Negative 06/08/20 05:12 Ur Phencyclidine Scrn Negative 06/08/20 05:12 Ur Amphetamines Screen Negative 06/08/20 05:12 U Benzodiazepines Scrn Negative 06/08/20 05:12 Urine Cocaine Screen Negative 06/08/20 05:12 U Marijuana (THC) Screen Negative 06/08/20 05:12 Drugs of Abuse Note Disclamer 06/08/20 05:12 Plasma/Serum Alcohol < 0.01 % (0-0.07) 06/08/20 11:03 Arias/IV: Voiding Method Condom Catheter Active Medications - Current Medications Current Medications: Generic Name Dose Route Start Last Admin Trade Name Freq PRN Reason Stop Dose Admin Baclofen 10 mg 06/08/20 20:00 06/12/20 09:50 Lioresal PO Not Given TID YASMIN Dextrose 50 gm 06/08/20 10:27 D50w (25gm) Vial IV Q30MIN PRN Hypoglycemia Protocol Escitalopram Oxalate 15 mg 06/09/20 10:00 06/12/20 09:51 Lexapro PO Not Given QDAY YASMIN Folic Acid 1 mg 06/09/20 10:00 06/12/20 09:50 Folvite PO Not Given QDAY [facility] Heparin Sodium (Porcine) 5,000 unit 06/11/20 14:00 06/12/20 06:00 Heparin SUB-Q Not Given Q8HR YASMIN Dextrose/Lactated Ringer's 1,000 mls @ 100 mls/hr 06/08/20 19:00 06/10/20 22:05 D5lr IV 100 mls/hr DIRECT YASMIN Administration Ondansetron HCl 4 mg 06/08/20 18:33 Zofran IV Q8H PRN Nausea And Vomiting
--- NOTE | 2020-06-12 11:58 | Discharge Summary ---
Providers - Providers Date of Admission: 06/10/20 15:17 Date of discharge: 06/12/20 Attending physician: MAY العلي 06/08/20 10:11 Consult to Case Management [CONS] Stat Services Needed at Discharge: Extension Service Agent Notified:: awaiting call back 06/10/20 07:30 Consult to Physician [CONS] Routine Comment: Consulting Provider: JEROME BANDA Physician Instructions: Reason For Exam: Evaluation for PEG placement Primary care physician: [employer] Hospitalization Reason for admission: Poor appetite Condition: Fair Hospital course: 24-year-old male with a medical history of traumatic brain injury admitted with a chief complaint of poor appetite. In the ER, patient noted to have hypoglycemia, metabolic acidosis and patient was admitted to the hospital. 06/08. I discussed case with patient's mother. Patient has not been eating anything at all for some time now. Patient will need to improve appetite to prevent electrolyte imbalances. Patient's mother is okay to get a PEG tube should this be necessary. Labs have been ordered 06/09. Patient refused labs this morning. I explained to him why he needs to have labs done. Resume patient's diet. Started patient on megestrol for now. 06/10. He is still nonverbal. He does not put effort in trying to speak. He has been cleared by psych. CT head showed no acute infarct. I tried to make him speak and he was smiling all through. He does not want to eat as well. Consulted GI today to know if he can get a PEG tube for feeding. I discussed with patient, he does not want PEG tube. Discussed with patients mother. 06/11. Psychiatry consulted yesterday as patient's was not willing to talk. I suspect patient's unwillingness is from underlying psych disorder. GI has seen patients and patient also needs psych evaluation. Psych to see patient today. Patient was able to mumble a few words this morning. CT head performed yesterda y was negative for any acute abnormality 06/12. He started eating yesterday. He ordered his lunch today. He is able to sepak. He is open to going to SNF. Discussed with patient and mother. He has been cleared by psych. - Patient Problems (1) Starvation ketoacidosis Current Visit: Yes Status: Acute Plan to address problem: Patient has very poor appetite and has not been able to eat and this is resulting in metabolic acidosis Has refused further finger sticks Patient's mother is open to patient getting a PEG tube should no etiology found for current issues. GI consulted for PEG placement. 06/10. As per GI, patient will need psych clearance prior to PEG tube placement 06/11. Psychiatry is been consulted 06/12. Appetite is better. (2) Hypoglycemia Current Visit: Yes Status: Acute Plan to address problem: Resolved (3) Depression Current Visit: Yes Status: Acute Qualifiers: Depression Type: other depression Qualified Code(s): F32.89 - Other specified depressive episodes Plan to address problem: Psychiatry evaluation for depression - As per psych he is not a candidate for inpatient. 06/10. Psychiatry reconsulted today. 06/11. Psychiatry to see patient today. 06/12. Psych already cleared. (4) Paraplegia Current Visit: Yes Status: Acute Plan to address problem: Baclofen for contractures/spasms (5) DVT prophylaxis Current Visit: No Status: Acute Plan to address problem: Heparin (6) Advance care planning Current Visit: Yes Status: Acute Plan to address problem: He will be discharged home today. Needs a hospital bed Disposition: [id number] HOME UNDER HOME HLTH - Discharge Diagnoses (1) Starvation ketoacidosis Status: Acute (2) Hypoglycemia Status: Acute (3) Depression Status: Acute Qualifiers: Depression Type: other depression Qualified Code(s): F32.89 - Other specified depressive episodes (4) Paraplegia Status: Acute (5) DVT prophylaxis Status: Acute (6) Advance care planning Status: Acute Core Measure Documentation - Palliative Care Palliative Care/ Comfort Measures: Not Applicable - Core Measures Any of the following diagnoses?: none Exam - Constitutional Vitals: Temp Pulse Resp BP Pulse Ox 98.5 F 105 H 18 104/79 97 06/12/20 04:45 06/11/20 22:23 06/12/20 04:45 06/12/20 04:45 06/11/20 22:23 General appearance: Present: no acute distress, well-nourished - EENT Eyes: Present: PERRL ENT: hearing intact, clear oral mucosa - Neck Neck: Present: supple, normal ROM - Respiratory Respiratory effort: normal Respiratory: bilateral: CTA - Cardiovascular Heart Sounds: Present: S1 & S2. Absent: rub, click - Extremities Extremities: pulses symmetrical, No edema Peripheral Pulses: within normal limits - Abdominal General gastrointestinal: Present: soft, non-tender, non-distended, normal bowel sounds Male genitourinary: Present: normal - Integumentary Integumentary: Present: clear, warm, dry - Psychiatric Psychiatric: appropriate mood/affect - Neurologic Neurologic: other (Alert and oriented x 3) Plan Additional Instructions: Continue megestrol. Follow up with outpatient psychiatrist Follow up with: PRIMARY CARE, [Primary Care Provider] - 3-5 Days Prescriptions: Folic Acid [Folvite] 1 mg PO QDAY #60 tablet megestroL [Megace] 400 mg PO DAILY #200 ml
[2020-06-12 12:43] VITALS: BP 113/77
== END 2020-06-12 15:22 | disposition home health service (06) | DRG 923 ==
LOC: ED 09:09 → 3A 12:32 → OBSVTOIN 06-10 15:17
PROVIDERS: ADMIT Internal Medicine; ATTEND Internal Medicine
DX: T73.0XXA Starvation, initial encounter (principal); E87.2 Acidosis; G82.20 Paraplegia, unspecified; Z68.1 Body mass index [BMI] 19.9 or less, adult; F32.89 Other specified depressive episodes; F94.0 Selective mutism; E16.2 Hypoglycemia, unspecified; X58.XXXA Exposure to other specified factors, initial encounter; Z56.0 Unemployment, unspecified
CPT/HCPCS: 36415; 70450; 71045; 80053; 80307; 80320; 82550; 82607; 82747; 82962; 83735; 84443; 85014; 85018; 85049; 93005; G0378; G0480; J1644; J7121

== ENCOUNTER 2020-07-08 07:14 | Emergency (ER) | payer MEDICARE ==
[2020-07-08] MEDS ORDERED: IBUPROFEN 400 MG TAB PO ONE (07:34)
[2020-07-08] MEDS ORDERED: ACETAMINOPHEN 500 MG TAB PO ONE (07:34)
[2020-07-08] MEDS ORDERED: BACLOFEN 10 MG TAB PO STA (07:34)
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
[2020-07-08 09:53] VITALS: BP 104/70
== END 2020-07-08 10:04 | disposition home or self-care (01) ==
LOC: ED 07:14
DX: M54.6 Pain in thoracic spine (principal); G82.20 Paraplegia, unspecified; Z98.890 Other specified postprocedural states; Z79.1 Long term (current) use of non-steroidal anti-inflammatories (NSAID); Z79.899 Other long term (current) drug therapy